=== PATIENT | female | born 2000 | race Caucasian/White ===

== ENCOUNTER 2024-12-29 12:23 | Emergency (ER) | payer SELFPAY ==
[~2024-12-29] VITALS: Ht 160 cm; Wt 82.0 kg
[2024-12-29 12:28] VITALS: O2SAT 99
[2024-12-29 12:35] VITALS: BP 128/71; PULSE 83; RESP 16; TEMP 36.8; O2SAT 99
[2024-12-29] MEDS: CEFTRIAXONE SODIUM 500MG VIAL IM ONE (15:09)
[2024-12-29 15:49] LABS: CLARITY URINE CLEAR (CLEAR); COLOR URINE YELLOW (YELLOW); GLUCOSE URINE NEGATIVE (NEGATIVE); KETONES URINE TRACE (NEGATIVE); LEUKOCYTE ESTERASE URINE 2+ (NEGATIVE); NITRITE URINE NEGATIVE (NEGATIVE); OCCULT BLOOD URINE NEGATIVE (NEGATIVE); PH URINE 5.5 (4.5-8.0); PROTEIN URINE NEGATIVE (NEGATIVE); SPECIFIC GRAVITY URINE 1.024 (1.005-1.030); UROBILINOGEN URINE 1.0 E.U./dL (0.2-1.0)
[2024-12-29 15:56] LABS: BACTERIA URINE TRACE; RBC URINE NONE SEEN /hpf (0-2); SQUAMOUS EPITHELIAL CELL URINE FEW /lpf (RARE/1+)
[2024-12-29] MEDS ORDERED: DOXY100T2 MT (16:37)
[2024-12-29] MEDS ORDERED: NITR100C MT (16:37)
[2024-12-29 16:51] LABS: HCG SCREEN NEGATIVE
[2024-12-31 04:07] LABS: HSV TYPE 2 SPECIFIC AB IGG Reactive (Non Reactive)
[2025-01-01 04:11] LABS: CHLAMYDIA TRACHOMATIS NAA Negative (Negative); NEISSERIA GONORRHOEAE NAA Negative (Negative)
== END 2024-12-29 17:10 | disposition left against medical advice (07) ==
LOC: ER 12:23
DX: N39.0 Urinary tract infection, site not specified (principal); Z11.3 Encounter for screening for infections with a predominantly sexual mode of transmission
CPT/HCPCS: 99283; 86592; 86695; 86696; 87491; 87591; 81003; 81025; 84703; 36415; 96372; J0696